=== PATIENT | male | born 1950 | race Caucasian/White ===

== ENCOUNTER 2025-07-03 20:36 | Emergency (ER) | payer MEDICARE, BC ==
[2025-07-03] MEDS: Ondansetron 4 MG/2 ML SDV IVPUSH ONE (20:58)
[2025-07-03 20:59] LABS: BASOPHILS ABSOLUTE AUTO 0.00 K/uL (0.00-0.20); BASOPHILS PERCENT AUTO 0.0 % (0.0-1.0); EOSINOPHILS ABSOLUTE AUTO 0.04 K/uL (0.00-0.45); EOSINOPHILS PERCENT AUTO 1.3 % (0.0-6.0); IMMATURE GRAN ABSOLUTE AUTO 0.01 K/uL (0.00-0.05); IMMATURE GRAN PERCENT AUTO 0.3 % (0.0-0.4); LYMPHOCYTES ABSOLUTE AUTO 0.24 K/uL (1.00-4.80); LYMPHOCYTES PERCENT AUTO 7.9 % (24.0-44.0); MEAN PLATELET VOLUME 9.0 fL (9.4-12.4); MONOCYTES ABSOLUTE AUTO 0.37 K/uL (0.00-0.80); MONOCYTES PERCENT AUTO 12.2 % (0.0-8.0); NEUTROPHILS ABSOLUTE AUTO 2.37 K/uL (1.80-7.70); NEUTROPHILS PERCENT AUTO 78.3 % (41.0-71.0); NRBC ABSOLUTE 0.00 K/uL (0.00-0.02); NRBC PERCENT 0.0 /100WBC (0.0-0.2); PLATELET COUNT,PLT 175 K/uL (150-400); RED BLOOD CELL COUNT 3.91 M/uL (4.52-5.90); WHITE BLOOD CELL COUNT,WBC 3.03 K/uL (3.9-11.3)
[2025-07-03 21:26] LABS: A/G RATIO 0.9 (0.9-1.6); ALANINE AMINOTRANSFERASE,ALT 16.0 IU/L (14-63); ASPARTATE AMNIOTRANSFERASE,AST 16.0 IU/L (15-37); BILIRUBIN TOTAL 0.3 mg/dL (0.2-1.0); BLOOD UREA NITROGEN,BUN 13.0 mg/dL (7.0-18.0); CARBON DIOXIDE,CO2 29.0 mmol/L (21.0-32.0); CHLORIDE,CL 103.0 mmol/L (98-107); CREATININE 0.9 mg/dL (0.8-1.3); EST CRCL DRUG DOSING (CG) 77.35 mL/min; GLUCOSE RANDOM 111.0 mg/dL (74-106); POTASSIUM,K 3.6 mmol/L (3.5-5.1); PROTEIN TOTAL,TP 7.4 g/dL (6.4-8.2); SODIUM,NA 143.0 mmol/L (136-148)
[2025-07-03 21:28] LABS: ESTIMATED GFR 89.0 mL/min (>60)
[2025-07-03 21:37] LABS: APPEARANCE,URINE HAZY; GLUCOSE,URINE NEGATIVE (NEGATIVE); OCCULT BLOOD,URINE MODERATE (NEGATIVE)
[2025-07-03 21:47] LABS: EPITHELIAL CELLS,URINE RARE (NONE-FEW); YEAST,URINE OCCASIONAL
== END 2025-07-04 00:23 | disposition home or self-care (01) ==
LOC: MW.ED 20:36
DX: R41.0 Disorientation, unspecified (principal); T41.3X5A Adverse effect of local anesthetics, initial encounter; E11.9 Type 2 diabetes mellitus without complications; Z79.84 Long term (current) use of oral hypoglycemic drugs; Z79.899 Other long term (current) drug therapy; Z86.73 Personal history of transient ischemic attack (TIA), and cerebral infarction without residual deficits
CPT/HCPCS: 36415; 71045; 80053; 81001; 83605; 83690; 84484; 85025; 87040; 93005; 99285; A9270; J7030; 93010; 99284